=== PATIENT | male | born 1950 | race Asian ===

== ENCOUNTER → 2019-03-30 | Emergency (ER) | payer OTHER ==
[~2019-03-30] VITALS: Ht 172.7 cm; Wt 68.0 kg
[2019-03-30 12:14] VITALS: BP 165/97; TEMP 99.7
[2019-03-30 13:08] LABS: PLATELET COUNT 158 K/uL (142-355)
[2019-03-30 13:17] LABS: POTASSIUM 3.6 mmol/L (3.6-5.2)
== END ==
LOC: ED 12:04
PROVIDERS: Emergency Medicine
DX: I10 Essential (primary) hypertension (principal); N28.9 Disorder of kidney and ureter, unspecified; R42 Dizziness and giddiness; F17.210 Nicotine dependence, cigarettes, uncomplicated
CPT/HCPCS: 80053; 81000; 85027; 93005; 96360; 99284

== ENCOUNTER 2019-04-02 09:53 | Emergency (ER) | payer OTHER ==
[~2019-04-02] VITALS: Ht 172.7 cm; Wt 68.0 kg
[2019-04-02 10:03] VITALS: TEMP 98.1
[2019-04-02 10:58] LABS: PLATELET COUNT 121 K/uL (142-355)
[2019-04-02 11:29] LABS: POTASSIUM 4.3 mmol/L (3.6-5.2)
[2019-04-02 15:10] VITALS: BP 269/100
== END 2019-04-02 15:30 | disposition short-term general hospital (02) ==
LOC: ED 09:53
PROVIDERS: Emergency Medicine
PROC: 0T9B70Z Drainage of Bladder with Drainage Device, Via Natural or Artificial Opening (ICD-10-PCS; principal; 2019-04-02)
DX: N19 Unspecified kidney failure (principal); R79.89 Other specified abnormal findings of blood chemistry; N13.39 Other hydronephrosis
CPT/HCPCS: 36415; 51702; 80053; 81000; 82150; 82550; 82553; 83690; 84484; 85027; 93005; 96360; 96361; 99284

== ENCOUNTER 2019-04-02 15:34 | Outpatient (CLI) | payer OTHER | END 2019-04-02 16:53 | disposition short-term general hospital (02) | LOC: AMB 15:34 | DX: N18.9 Chronic kidney disease, unspecified (principal); R79.89 Other specified abnormal findings of blood chemistry; N13.2 Hydronephrosis with renal and ureteral calculous obstruction; R10.2 Pelvic and perineal pain; R30.0 Dysuria | CPT/HCPCS: A0425; A0427 ==

== ENCOUNTER 2019-11-18 14:25 | Emergency (ER) | payer OTHER ==
[~2019-11-18] VITALS: Ht 172.7 cm; Wt 68.0 kg
[2019-11-18 16:24] LABS: PLATELET COUNT 175 K/uL (142-355)
[2019-11-18 21:00] VITALS: TEMP 99.8
[2019-11-18 21:13] VITALS: BP 140/75
== END 2019-11-18 21:15 | disposition short-term general hospital (02) ==
LOC: ED 14:39 → EDBD 14:39 → ED 21:15
PROVIDERS: Family Medicine
DX: A41.9 Sepsis, unspecified organism (principal); R79.89 Other specified abnormal findings of blood chemistry; E86.0 Dehydration; N19 Unspecified kidney failure; Z03.818 Encounter for observation for suspected exposure to other biological agents ruled out
CPT/HCPCS: 80053; 80307; 80320; 81000; 82150; 82728; 83605; 83690; 85007; 85027; 85379; 87040; 87077; 87086; 87088; 87186; 87205; 87635; 96361; 96365; 99285; J0696; U0003